=== PATIENT | male | born 1985 | race Caucasian/White ===

== ENCOUNTER 2018-08-12 02:22 | Inpatient (IN) | payer SELFPAY ==
[~2018-08-12] VITALS: Ht 160 cm; Wt 77.1 kg
[2018-08-12 02:25] VITALS: Ht 160 cm; Wt 77.1 kg
[2018-08-12 02:59] LABS: CALCIUM 8.9 mg/dL (8.5-10.1); CARBON DIOXIDE 31.2 mmol/L (21-32); CHLORIDE SERUM 103 mmol/L (98-107); CREATININE SERUM 1.3 mg/dL (0.7-1.3); GFR1 > 60 mL/min; GLUCOSE SERUM 136 mg/dL (74-106); POTASSIUM SERUM 3.9 mmol/L (3.5-5.1); SODIUM SERUM 140 mmol/L (136-145)
[2018-08-12 03:01] LABS: BASOPHIL % 0.5 % (0-2); PLATELET COUNT 262 x10^3mcL (130-400); RED CELL DISTRIBUTION WIDTH 12.9 % (11.5-14.5)
[2018-08-12 03:05] LABS: ALKALINE PHOSPHATASE 96 U/L (46-116); ALT/SGPT 68 U/L (16-63); AST/SGOT 18 U/L (15-37); BILIRUBIN TOTAL 0.4 mg/dL (0.20-1.00); LIPASE 114 IU/L (73-393); TOTAL PROTEIN, SERUM 7.3 g/dL (6.4-8.2)
[2018-08-12 03:37] LABS: microscopic required? NO
[2018-08-12 03:42] LABS: UA SPECIFIC GRAVITY 1.015 (1.005-1.035); urine erythrocyte NEGATIVE (NEGATIVE)
[2018-08-12 05:51] LABS: AMYLASE 69 U/L (25-115); CHOLESTEROL 149 mg/dL (<200); PHOSPHOROUS 3.6 mg/dL (2.5-4.9)
[2018-08-12 05:52] LABS: CHOLESTEROL/HDL RATIO 6.5; HDL CHOLESTEROL 23 mg/dL (40-60); TRIGLYCERIDES 406 mg/dL (<150)
[2018-08-12 06:53] LABS: AMPHETAMINE QUAL UR NONE DETECTED (See below)
[2018-08-12 10:00] VITALS: BP 151/93
[2018-08-12 21:13] VITALS: BP 148/86
[2018-08-13 05:50] VITALS: BP 130/80
[2018-08-13 06:34] LABS: CALCIUM 9.3 mg/dL (8.5-10.1); CARBON DIOXIDE 29.4 mmol/L (21-32); CHLORIDE SERUM 104 mmol/L (98-107); CREATININE SERUM 0.9 mg/dL (0.7-1.3); GFR1 > 60 mL/min; GLUCOSE SERUM 110 mg/dL (74-106); MAGNESIUM 2.4 mg/dL (1.8-2.4); PHOSPHOROUS 3.7 mg/dL (2.5-4.9); POTASSIUM SERUM 4.2 mmol/L (3.5-5.1); SODIUM SERUM 140 mmol/L (136-145)
[2018-08-13 06:47] LABS: BASOPHIL % 0.3 % (0-2); PLATELET COUNT 256 x10^3mcL (130-400); RED CELL DISTRIBUTION WIDTH 12.8 % (11.5-14.5)
[2018-08-13 09:16] VITALS: BP 145/83
[2018-08-13 16:05] VITALS: BP 139/87
[2018-08-13 19:18] VITALS: BP 132/81
[2018-08-14 04:38] VITALS: BP 104/65
[2018-08-14 06:26] LABS: BASOPHIL % 0.4 % (0-2); PLATELET COUNT 224 x10^3mcL (130-400)
[2018-08-14 06:34] LABS: CALCIUM 8.8 mg/dL (8.5-10.1); CARBON DIOXIDE 30.4 mmol/L (21-32); CHLORIDE SERUM 105 mmol/L (98-107); GFR1 > 60 mL/min; GLUCOSE SERUM 86 mg/dL (74-106); MAGNESIUM 2.1 mg/dL (1.8-2.4); PHOSPHOROUS 4.4 mg/dL (2.5-4.9); POTASSIUM SERUM 3.8 mmol/L (3.5-5.1); SODIUM SERUM 142 mmol/L (136-145)
[2018-08-14 08:19] VITALS: BP 132/70
[2018-08-14] MEDS ORDERED: NORCO1 TA2 PO (15:08)
[2018-08-14] MEDS ORDERED: LEVOFLOXACIN500 M1 PO (15:23)
[2018-08-14] MEDS ORDERED: FLA500 PO (15:24)
[2018-08-14 15:33] VITALS: BP 132/70
== END 2018-08-14 15:55 | disposition home or self-care (01) | DRG 419 ==
LOC: ED 02:22 → EDBD 04:58 → MU 04:58
PROVIDERS: Emergency Medicine; Family Medicine; Surgery; ADMIT Internal Medicine
PROC: 0FT44ZZ Resection of Gallbladder, Percutaneous Endoscopic Approach (ICD-10-PCS; principal; 2018-08-12 14:00)
DX: K80.00 Calculus of gallbladder with acute cholecystitis without obstruction (principal); I10 Essential (primary) hypertension; E78.1 Pure hyperglyceridemia; E66.9 Obesity, unspecified; F17.210 Nicotine dependence, cigarettes, uncomplicated; Z68.30 Body mass index [BMI] 30.0-30.9, adult; Z79.899 Other long term (current) drug therapy; Z72.89 Other problems related to lifestyle
CPT/HCPCS: 99406; J0694; J2250; J2270; J2405; J2543; J3010; J3490; J7030; Q0092

== ENCOUNTER 2018-11-27 04:54 | Emergency (ER) | payer SELFPAY ==
[~2018-11-27] VITALS: Ht 165.1 cm; Wt 76.7 kg
[~2018-11-27 04:54] MED LIST: FLA500 PO; LEVOFLOXACIN500 M1 PO; NORCO1 TA2 PO
[2018-11-27 06:23] VITALS: BP 148/97
== END 2018-11-27 06:23 | disposition home or self-care (01) ==
LOC: ED 04:54
DX: K29.70 Gastritis, unspecified, without bleeding (principal); F17.210 Nicotine dependence, cigarettes, uncomplicated; Z71.6 Tobacco abuse counseling; Z90.49 Acquired absence of other specified parts of digestive tract
CPT/HCPCS: 99406